=== PATIENT | female | born 1990 | race African-American/Black ===

== ENCOUNTER 2017-10-03 18:29 | Emergency (ER) | payer MEDICAID ==
[~2017-10-03] VITALS: Ht 167.6 cm; Wt 89.8 kg
[2017-10-03 19:47] LABS: Basophils # (auto) 0 uL; Basophils % (auto) 0.4 % (0.0-2.0); Eosinophils # (auto) 0.1 uL; Eosinophils % (auto) 1.4 % (0.0-7.0); Lymphocytes # (auto) 2.5 uL; Mean Corpuscular Hemoglobin 30.6 pg (28.0-32.0); Mean Corpuscular Hgb Conc. 33.4 g/dL (32.0-36.0); Mean Corpuscular Volume 91.4 fL (80.0-100.0); Monocytes # (auto) 0.5 uL; Monocytes % (auto) 7.3 % (0.0-12.0); Neutrophils # (auto) 3.2 uL; Neutrophils % (auto) 50.9 % (37.0-80.0); Nucleated Red Blood Cells % 0.2 %; Platelet Count (auto) 298 10^3/uL (140-450); Red Blood Cells 4.59 10^6/uL (4.0-5.20); Red Cell Distribution Width 12.6 % (11.8-14.3); White Blood Cell 6.2 10^3/uL (4.4-10.8)
[2017-10-03 20:01] LABS: Alanine Aminotransferase 22 U/L (13-56); Albumin 3.4 g/dL (3.4-5.0); Anion Gap 9 (5-15); Aspartate Aminotransferase 13 U/L (15-37); BUN/Creatinine Ratio 14.3; Blood Urea Nitrogen 12 mg/dL (7-18); Calcium 8.6 mg/dL (8.5-10.1); Carbon Dioxide 27 mmol/L (21-32); Chloride 106 mmol/L (98-107); GFR African American 106 mL/min; GFR Non-African American 88 mL/min; Glucose 86 mg/dL (74-106); Potassium 4.1 mmol/L (3.5-5.1); Sodium 142 mmol/L (136-145)
[2017-10-03 20:05] LABS: Alkaline Phosphatase 61 U/L (45-117); Bilirubin, Total 0.3 mg/dL (0.2-1.0); Total Protein 8.1 g/dL (6.4-8.2)
[2017-10-03 20:42] LABS: Urine Pregnacy Test Negative (Negative)
[2017-10-03 20:48] LABS: Urine Bacteria NONE SEEN /hpf (None Seen); Urine Blood 3+ /uL (Negative); Urine Mucus FEW (None Seen); Urine Specific Gravity 1.021 (1.001-1.035); Urine WBC 6 /hpf (0 - 5)
[2017-10-03 20:57] LABS: Alcohol, Urine < 3.0 mg/dL (0-5); Amphetamine Screen, Urine NEGATIVE (NEGATIVE); Barbiturate Scree,Urine NEGATIVE (NEGATIVE); Benzodiazephine Screen, Urine NEGATIVE (NEGATIVE); Cannabinoid Screen, Urine NEGATIVE (NEGATIVE); Cocaine Screen, Urine NEGATIVE (NEGATIVE); Opiate Scree,Urine NEGATIVE (NEGATIVE); Phencyclidine Screen, Urine NEGATIVE (NEGATIVE)
[2017-10-03 23:37] VITALS: BP 123/64
[2017-10-03] MEDS ORDERED: diphenhdrAMINE HCL 50 MG/1 ML VL IV ONE (23:45)
[2017-10-03] MEDS ORDERED: KETOROLAC TROMETH 60MG/2ML VIAL IM ONE (23:45)
[2017-10-03] MEDS ORDERED: ACETAMINOPHEN 325 MG TAB PO ONE (23:45)
== END 2017-10-04 00:44 | disposition home or self-care (01) ==
LOC: ER 18:29
DX: G44.209 Tension-type headache, unspecified, not intractable (principal)
CPT/HCPCS: 36415; 80053; 80307; 81001; 81025; 84484; 85025; 93005

== ENCOUNTER 2023-01-24 10:24 | Emergency (ER) | payer MEDICAID ==
[~2023-01-24] VITALS: Ht 167.6 cm; Wt 105.7 kg
[2023-01-24 11:57] LABS: Urine Bacteria FEW /hpf (None Seen); Urine Blood Negative /uL (Negative); Urine Clarity Clear (Clear); Urine Color Colorless (Yellow); Urine Protein, UAD Negative (Negative); Urine Specific Gravity 1.014 (1.001-1.035); Urine Urobilinogen Normal (Negative); Urine WBC 5 /hpf (0 - 5)
[2023-01-24] MEDS ORDERED: CIPR-173 PO (12:31)
[2023-01-24 12:47] VITALS: BP 148/97; PULSE 85; RESP 18; TEMP 98.1; O2SAT 100
== END 2023-01-24 12:50 | disposition home or self-care (01) ==
LOC: ER 10:24
DX: N39.0 Urinary tract infection, site not specified (principal); I10 Essential (primary) hypertension; Z79.2 Long term (current) use of antibiotics
CPT/HCPCS: 81001

== ENCOUNTER 2024-08-01 22:57 | Emergency (ER) | payer BC, MEDICAID ==
[~2024-08-01] VITALS: Ht 167.6 cm; Wt 103.9 kg
[~2024-08-01 22:57] MED LIST: CIPR-173 PO
[2024-08-01 23:41] LABS: Urine Bacteria None Seen /hpf (None Seen)
[2024-08-01 23:48] LABS: Urine Blood Negative /uL (Negative); Urine Clarity Turbid (Clear); Urine Color Yellow (Yellow); Urine Mucus FEW (None Seen); Urine Protein, UAD 2+ (Negative); Urine Specific Gravity 1.025 (1.001-1.035); Urine Squamous Epithelial Cell MOD /hpf (<5); Urine Urobilinogen 2 mg/dL (Negative); Urine WBC 1 /HPF (0-5); Urine pH 8.5 (5.0-9.0)
[2024-08-02] MEDS: ONDANSETRON ODT 4 MG TAB PO ONE (00:40)
[2024-08-02 01:20] VITALS: PULSE 66; RESP 18
[2024-08-02] MEDS ORDERED: ZOFR4T PO (01:31)
[2024-08-02] MEDS: HYDROcodone-ACET 10/325MG TAB PO ONE (01:31)
[2024-08-02] MEDS: DexAMETHasone SOD PHOS 10MG/1ML VIAL INJ IM ONE (01:31)
[2024-08-02] MEDS ORDERED: IBUP-1455 PO (01:31)
--- NOTE | 2024-08-02 01:31 | ED.PDOC ---
Eye-HPI HPI Comments Patient is a pleasant but severely morbidly obese 33-year-old female who arrives the ED today for evaluation of severe sore throat with intermittent nausea and vomiting that began earlier today and has continued and worsened throughout. Patient denies any fever nausea or vomiting. Patient states the symptoms came on quickly and have only worsened. Patient states she is having a difficult time swallowing her saliva. Vital signs were remarkable for mild hypertension on arrival. Chief Complaint: Nausea/Vomiting Time Seen by MD: 23:11 Primary Care Provider: DR CHANDLER Reviewed Notes: Nurses Notes Allergies: Coded Allergies: NO KNOWN ALLERGIES (Unverified , 10/03/17) Home Meds Active Scripts Ciprofloxacin Hcl (Cipro) 500 Mg Tab, 1 TAB PO BID, #14 TAB Prov:ROYCE GOODMAN MD 01/24/23 Information Source: Patient Mode of Arrival: Ambulatory Timing: Hours Duration: Since onset Prehospital treatment: None Quality: Pain, Red Oropharynx: Tonsillar hypertrophy, Red Onset: Spontaneous Past Medical History PAST MEDICAL HISTORY: HTN Surgical History: [employer] History: No Pertinent [employer] History Family History Family History: Unknown Social History Smoker: Non-Smoker Alcohol: Occasionally Drugs: Denies Drug Use Lives In: Home Constitutional: denies: chills, diaphoresis, fatigue, fever, malaise, sweats, weakness, others EENTM: reports: throat pain, throat swelling; denies: blurred vision, double vision, ear bleeding, ear discharge, ear drainage, ear pain, ear ringing, eye pain, eye redness, hearing loss, mouth pain, mouth swelling, nasal discharge, nose bleeding, nose congestion, nose pain, photophobia, tearing, voice changes, others Respiratory: denies: cough, hemoptysis, orthopnea, SOB at rest, shortness of breath, SOB with excertion, stridor, wheezing, others Cardiovascular: denies: chest pain, dizzy spells, diaphoresis, Dyspnea on exertion, edema, irregular heart beat, left arm pain, lightheadedness, palpitations, PND, syncope, others Gastrointestinal: reports: nausea, vomiting; denies: abdomen distended, abdomin al pain, blood streaked bowels, constipated, diarrhea, dysphagia, difficulty swallowing, hematemesis, melena, poor appetite, poor fluid intake, rectal bleeding, rectal pain, others Genitourinary: denies: abnormal vagina bleeding, burning, dyspareunia, dysuria, flank pain, frequency, hematuria, incontinence, pain, , vagina discharge, urgency, others Neurological: denies: dizziness, fainting, headache, left sided numbness, left sided weakness, numbness, paresthesia, pre-existing deficit, right sided numbness, right sided weakness, seizure, speech problems, tingling, tremors, weakness, others Musculoskeletal: denies: back pain, gout, joint pain, joint swelling, muscle pain, muscle stiffness, neck pain, others Integumetry: denies: bruises, change in color, change in hair/nails, dryness, laceration, lesions, lumps, rash, wounds, others Allergic/Immunocompromised: denies: Difficulty Healing, Frequent Infections, Hives, Itching, others Hematologic/Lymphatic: denies: anemia, blood clots, easy bleeding, easy bruising, swollen glands, others Endocrine: denies: excessive hunger, excessive sweating, excessive thirst, excessive urination, flushing, intolerance to cold, intolerance to heat, unexplained weight gain, unexplained weight loss, others Psychiatric: denies: anxiety, bipolar disorder, depression, hopeless, panic disorder, schizophrenia, sleepless, suicidal, others Physical Exam General Appearance: Moderate Distress (Due to throat pain concerns.), Obese HEENT: Pharynx Normal, TMs Normal, Other ( Moderately beefy oropharynx with moderate bilateral tonsillar pillar involvement. No definitive exudate noted, but the patient does have small red spots throughout the posterior oropharyngeal region. Airway is patent.) Neck: Full Range of Motion, Non-Tender, Normal, Normal Inspection Respiratory: Chest Non-Tender, Lungs Clear, No Accessory Muscle Use, No Respiratory Distress, Normal Breath Sounds Cardiovascular: No Edema, No JVD, No Murmur, No Gallop, Normal Peripheral Pulses, Regular Rate/Rhythm Breast Exam: Deferred Gastrointestinal: No Organomegaly, Non Tender, No Pulsatile Mass, Normal Bowel Sounds, Soft Genitalia: Deferred Pelvic: Deferred Rectal: Deferred Extremities: No calf tenderness, Normal capillary refill, Normal inspection, Normal range of motion, Non-tender, No pedal edema Neurologic: Alert, No Motor Deficits, Normal Affect, Normal Mood, No Sensory Deficits Cerebellar Function: Normal Reflexes: Normal Skin: Dry, Normal Color, Warm Lymphatic: No Adenopathy Was a procedure done? Was a procedure done?: No EENT DIFF Eye: N/A Sore Throat: Other ( Streptococcal pharyngitis, viral pharyngitis, influenza, COVID-19, viral illness) X-Ray, Labs, Meds, VS Vital Signs Date Time Temp Pulse Resp B/P (MAP) Pulse Ox O2 Delivery O2 Flow Rate FiO2 08/02/24 00:41 98.6 73 20 136/89 (105) 98 98.6 08/01/24 23:20 97.8 79 18 165/101 (122) 98 Lab Test 08/01/24 23:30 Range/Units Urine Color Yellow Yellow Urine Clarity Turbid H Clear Urine pH 8.5 5.0-9.0 Urine Specific [place] 1.025 1.001-1.035 Urine Protein 2+ H Negative Urine Ketones Negative Negative Urine Blood Negative Negative /uL Urine Nitrite Negative Negative Urine Bilirubin Negative Negative Urine Urobilinogen 2 H Negative mg/dL Urine Leukocyte Esterase Negative Negative /uL Urine RBC 6 0 - 4 /hpf Urine Microscopic WBC 1 0-5 /HPF Urine Squamous Epithelial Cells Mod <5 /hpf Urine Bacteria None seen None Seen /hpf Urine Mucus Few None Seen Urine Glucose Normal Normal mg/dL Urine Test Negative Negative Current Medications Medications (Trade) Dose Ordered Sig/Damon Route Start Time Stop Time Status Last Admin Ondansetron HCl (Zofran Po) 4 mg ONCE ONCE PO 08/01/24 23:15 08/01/24 23:16 DC 08/02/24 00:40 X-Ray, Labs, Meds, VS Comment Studies were pending at time of this note. Patient was treated empirically for streptococcal pharyngitis. Patient was given 1.2 million units of Bicillin as well as some dexamethasone. Patient care will be transferred to Dr. Jeffrey for evaluation of results when returned. Time of 1ST Reevaluation: : Reevaluation 1ST: Improved Consultation: PCP Patient Education/Counseling: Diagnosis, Treatment Family Education/Counseling: Diagnosis, Treatment Departure 1 Departure Time of Disposition: Impression: Primary Impression: Streptococcal pharyngitis Disposition: HOME / SELF CARE / HOMELESS Condition: Stable Additional Instructions: Advise utilizing medication as needed for symptomatic relief. Advised patient that if symptoms do not resolve in the next 48 hours, the patient is experiencing a viral pharyngitis rather than a streptococcal one and that the symptoms may last for a few more days. e-Prescriptions Ondansetron Odt 4MG Tab (ZOFRAN PO) 4 Mg Tb 4 MG PO Q6HP PRN, #15 TAB ODT TAB-DISSOLVE IN MOUTH, THEN SWALLOW Prov: ARA MONTERROSO PAC 08/02/24 Ibuprofen Micronized (Ibuprofen) 800 Mg Tab 800 MG PO Q8HP PRN, #20 TAB Prov: ARA MONTERROSO PAC 08/02/24 Discharged With: Self, Friend Critical Care Note Critical Care Time?: No Stability Stability form required: No Heart Score Heart Score: Heart Score Response (Comments) Value History N/A 0 EKG N/A 0 Age N/A 0 Risk Factors N/A 0 Troponin N/A 0 Total 0 ARA MONTERROSO PAC Aug 02, 2024 01:31
[2024-08-02] MEDS: PENICILLIN G BENZ 1,200,000 UNITS/2 ML SYRG IM ONE (01:32)
[2024-08-02] MEDS: KETOROLAC TROMETH 60MG/2ML VIAL IM ONE (01:32)
[2024-08-02 03:35] LABS: COVID19 ANTIGEN SOFIA FIA NEGATIVE (NEGATIVE)
[2024-08-02 03:36] LABS: Rapid Strep A Screen-Throat Negative
[2024-08-02 03:36] LABS: Rapid Influenza A Negative (Negative); Rapid Influenza B Negative (Negative)
[2024-08-02 04:30] VITALS: BP 141/87; PULSE 66; RESP 18; TEMP 98.1; O2SAT 96
== END 2024-08-02 04:33 | disposition home or self-care (01) ==
LOC: ER 22:57
DX: J02.0 Streptococcal pharyngitis (principal); I10 Essential (primary) hypertension; R11.2 Nausea with vomiting, unspecified; Z20.822 Contact with and (suspected) exposure to COVID-19
CPT/HCPCS: 36415; 81001; 81025; 87070; 87426; 87804; 87880; 96372; 99285; J0561; J1100; J1885; Q0162